=== PATIENT | male | born 1995 | race Caucasian/White ===

== ENCOUNTER 2022-06-14 01:51 | Emergency (ER) | payer SELFPAY ==
[~2022-06-14] VITALS: Ht 167.6 cm; Wt 59.0 kg
[2022-06-14 02:09] VITALS: BP 145/88
--- NOTE | 2022-06-14 02:47 | NUR ---
US TECH AT BED SIDE
--- NOTE | 2022-06-14 03:12 | NUR ---
LAB CALLED TO PICKUP URINE SAMPLE.
[2022-06-14 04:31] LABS: BILIRUBIN,URINE NEGATIVE (NEGATIVE); COLOR,URINE OTHER (YELLOW); LEUKOCYTE ESTERASE ,URINE NEGATIVE (NEGATIVE); NITRITE, URINE NEGATIVE (NEGATIVE); PROTEIN,URINE NEGATIVE (NEGATIVE); UGLUCOSE NEGATIVE (NEGATIVE); UROBILINOGEN,URINE 0.2 EU/dL (0.2)
== END 2022-06-14 04:50 | disposition home or self-care (01) ==
LOC: EDBD 01:51 → ER 01:51
DX: N43.3 Hydrocele, unspecified (principal); Z60.2 Problems related to living alone
CPT/HCPCS: 76870-TC